=== PATIENT | female | born 1985 | race Caucasian/White ===

== ENCOUNTER 2020-01-24 16:17 | Emergency (ER) | payer SELFPAY ==
[~2020-01-24] VITALS: Wt 99.8 kg
[2020-01-24] MEDS ORDERED: IBUPROFEN600 MG PO (17:03)
[2020-01-24] MEDS ORDERED: CEPHALEXIN500 M1 PO (17:03)
== END 2020-01-24 20:53 | disposition home or self-care (01) ==
LOC: ED 16:17
DX: S50.852A Superficial foreign body of left forearm, initial encounter (principal); W45.0XXA Nail entering through skin, initial encounter; Y93.89 Activity, other specified; Y92.89 Other specified places as the place of occurrence of the external cause; Y99.8 Other external cause status